=== PATIENT | female | born 1955 | race Caucasian/White ===

== ENCOUNTER 2019-11-10 23:59 | Emergency (ER) | payer MEDICAID ==
[~2019-11-10] VITALS: Ht 167.6 cm; Wt 65.8 kg
[2019-11-11 00:04] VITALS: Ht 167.6 cm; Wt 65.8 kg
[2019-11-11 01:27] LABS: BASOPHIL % 0.3 % (0-2); PLATELET COUNT 359 x10^3mcL (130-400); RED CELL DISTRIBUTION WIDTH 12.7 % (11.5-14.5)
[2019-11-11 01:39] LABS: CALCIUM 8.7 mg/dL (8.5-10.1); CARBON DIOXIDE 26.9 mmol/L (21-32); CHLORIDE SERUM 102 mmol/L (98-107); CREATININE SERUM 0.6 mg/dL (0.6-1.0); GFR1 > 60 mL/min; GLUCOSE SERUM 255 mg/dL (74-106); POTASSIUM SERUM 3.8 mmol/L (3.5-5.1); SODIUM SERUM 139 mmol/L (136-145)
[2019-11-11 01:41] LABS: ALBUMIN 3.4 g/dL (3.4-5.0); ALKALINE PHOSPHATASE 82 U/L (46-116); ALT/SGPT 18 U/L (14-59); AST/SGOT 8 U/L (15-37); BILIRUBIN TOTAL 0.2 mg/dL (0.20-1.00); TOTAL PROTEIN, SERUM 7.4 g/dL (6.4-8.2)
[2019-11-11 03:47] VITALS: BP 143/57
== END 2019-11-11 03:48 | disposition home or self-care (01) ==
LOC: ED 23:59
PROVIDERS: Emergency Medicine
DX: G44.209 Tension-type headache, unspecified, not intractable (principal); E11.65 Type 2 diabetes mellitus with hyperglycemia; I10 Essential (primary) hypertension
CPT/HCPCS: 82962; 83880; J1885; J2405; J7030; Q0092